=== PATIENT | male | born 1970 | race Caucasian/White ===

== ENCOUNTER 2019-10-23 12:23 | Emergency (ER) | payer SELFPAY ==
[~2019-10-23] VITALS: Ht 165.1 cm; Wt 77.3 kg
[2019-10-23 12:35] VITALS: BP 154/83; PULSE 83; TEMP 98
[2019-10-23] MEDS ORDERED: BACTRIM DS 8001 TAB PO (13:10)
[2019-10-23] MEDS ORDERED: CEPHALEXIN500 M1 PO (13:10)
== END 2019-10-23 13:20 | disposition home or self-care (01) ==
LOC: COL.ER 12:23
DX: L03.314 Cellulitis of groin (principal); F17.210 Nicotine dependence, cigarettes, uncomplicated